=== PATIENT | male | born 1970 | race African-American/Black ===

== ENCOUNTER 2017-07-15 20:08 | Emergency (ER) | payer OTHER ==
[~2017-07-15] VITALS: Ht 182.9 cm; Wt 97.5 kg
[2017-07-15 20:09] VITALS: BP 154/98
[2017-07-15 20:16] VITALS: BP 154/98
--- NOTE | 2017-07-15 20:20 | NUR ---
TO ER CHAIR D
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
[2017-07-15] MEDS ORDERED: NEOMYCIN/POLYMYXIN/BACITRACIN 0.9 GM/1 PKT TP ONE (20:28)
[2017-07-15] MEDS ORDERED: IBUPROFEN 800 MG TAB PO ONE (21:40)
--- NOTE | 2017-07-15 22:39 | NUR ---
DPatient discharged with v/s stable. Written and verbal after care instructions given and explained. Patient alert, oriented and verbalized understanding of instructions. Wheel Chair Assisted with to home. All questions addressed prior to discharge. ID band removed. Patient advised to follow up with PMD. Rx of NAPROSYN given. Patient educated on indication of medication including possible reaction and side effects. Opportunity to ask questions provided and answered.
--- NOTE | 2017-07-15 22:41 | NUR ---
DISCHARGED BY DR CARVER
== END 2017-07-15 22:39 | disposition home or self-care (01) ==
LOC: MED 20:08
DX: S42.101A Fracture of unspecified part of scapula, right shoulder, initial encounter for closed fracture (principal); S80.01XA Contusion of right knee, initial encounter; J45.909 Unspecified asthma, uncomplicated; V29.9XXA Motorcycle rider (driver) (passenger) injured in unspecified traffic accident, initial encounter; Y93.55 Activity, bike riding; Y92.488 Other paved roadways as the place of occurrence of the external cause; Y99.8 Other external cause status
CPT/HCPCS: 73030; 73562; 99284